=== PATIENT | male | born 1990 | race Caucasian/White ===

== ENCOUNTER 2016-10-14 17:39 | Emergency (ER) | payer OTHER ==
[2016-10-14 17:52] VITALS: BP 120/76
[2016-10-14] MEDS ORDERED: predniSONE 20 MG TABLET PO STA (18:48)
--- NOTE | 2016-10-14 18:50 | ED Physician Documentation ---
PD HPI SKIN - Stated complaint Stated Complaint: ITCHY ALL OVER - Chief complaint Chief Complaint: Wound - History obtained from History obtained from: Patient - History of Present Illness Timing - onset: How many days ago (3) Timing - duration: Days Timing - details: Gradual onset Pain level max: 0 Pain level now: 0 Location: Bodywide Quality / character: Itchy, Raised, Swelling. No: Vesicular, Crusted Improved by: Other (hasn't taken anything) Associated symptoms: No: Fever, Myalgias, Joint pain, Headache, Facial swelling , Dyspnea, Abd pain, N/V/D, Urinary sx Contributing factors: No: Exposed to medication, Exposed to food, Exposed to soap / lotion, Exposed to Poison ingrid/oak, Insect bite /sting, Recent illness Recently seen: Not recently seen - Additional information Additional information: Patient is a 26-year-old male who has had a rash for several days. Worsening. Has not taken anything. Review of Systems Constitutional: denies: Fever GI: denies: Vomiting Musculoskeletal: denies: Neck pain, Back pain Neurologic: denies: Focal weakness, Numbness, Headache PD PAST MEDICAL HISTORY - Past Medical History Past Medical History: No Neuro: Other Other Past Medical History: HX of Heart murmur - Past Surgical History Past Surgical History: No - Present Medications Home Medications: Ambulatory Orders Medication Instructions Recorded Confirmed Prednisone 40 mg PO DAILY #10 tablet 10/14/16 - Allergies Allergies/Adverse Reactions: Allergies Allergy/AdvReac Type Severity Reaction Status Date / Time No Known Drug Allergies Allergy Verified 10/14/16 17:49 - Social History Does the pt smoke?: No Smoking Status: Never smoker Does the pt drink ETOH?: Yes ETOH Use: Wine, Beer, Liquor Does the pt have substance abuse?: No - Immunizations Immunizations are current?: Yes - POLST Patient has POLST: No PD ED PE NORMAL - Vitals Vital signs reviewed: Yes - General General: Alert and oriented X 3, No acute distress, Well developed/nourished - HEENT HEENT: PERRL, Moist mucous membranes - Neck Neck: Supple, no meningeal sign - Cardiac Cardiac: RRR, Strong equal pulses - Respiratory Respiratory: No respiratory distress, Clear bilaterally - Abdomen Abdomen: Soft, Non tender, Non distended - Derm Derm: Warm and dry, Other (Diffuse maculopapular exanthem, mainly over the trunk and legs. Also present on the bilateral arms. Excoriation lundberg present. No vesicles. No pustules.) - Neuro Neuro: Alert and oriented X 3 - Psych Psych: Normal mood, Normal affect Results - Vitals Vitals: Oxygen O2 Source Room air PD MEDICAL DECISION MAKING - ED course Complexity details: considered differential, d/w patient ED course: Patient is a 26-year-old male with a maculopapular exanthem of unclear etiology. No fevers. He is very well-appearing, nontoxic. No recent travel. No new medications, detergents. Does not appear consistent with mite infestation. We will trial him on steroids and see if this resolves his symptoms. Patient counseled regarding signs and symptoms for which I believe and urgent re-evaluation would be necessary. Patient with good understanding of and agreement to plan and is comfortable going home at this time This document was made in part using voice recognition software. While efforts are made to proofread this document, sound alike and grammatical errors may occur. Departure - Departure Disposition: 01 Home, Self Care Clinical Impression: Dermatitis Condition: Good Instructions: ED Dermatitis Non Specific Rash Follow-Up: your,doctor in 3 days [Other] Prescriptions: Prednisone 40 mg PO DAILY #10 tablet Comments: You can also use benadryl at home for itching. Return if you worsen. The cause of your symptoms is unclear today. Discharge Date/Time: 10/14/16 18:57
[2016-10-14] MEDS ORDERED: predniSONE 20 MG TABLET ONE (18:53)
== END 2016-10-14 18:57 | disposition home or self-care (01) ==
LOC: ED 17:39
DX: L30.9 Dermatitis, unspecified (principal)
CPT/HCPCS: 99283; J7512